=== PATIENT | female | born 1980 | race Hispanic/Latino ===

== ENCOUNTER 2021-05-07 00:10 | Inpatient (IN) | payer SELFPAY ==
--- OUTSIDE RECORDS SUMMARY | 2021-05-07 00:13 | XMS REPORT | Continuity of Care Document ---
:1980 Author Organization [facility] t Address [address] [place] [address] Care Team Providers Name Role Phone Pcp, Patient Does Not Have A Primary Care Physician [id number] Haseeb Driver NP Attending Clinician Haseeb DRIVER Attending Clinician Unavailable Problems This patient has no known problems. Allergies, Adverse Reactions, Alerts Allergy Allergy Status Severity Reaction(s) Onset Inactive Treating Comm ents Source Name Type Date Date Clinician NO KNOWN Drug Active Univers ALLERGIE Class ity [facility] Social History Social Habit Start Date Stop Date Quantity Comments Source Exposure to Not sure [facility] SARS-CoV-2 (event) Medica l Branch Sex Assigned At [birth year]01 [facility] 00:00:00 00:00:[address] [facility] Smoking Status Start Date Stop Date Source Unknown if ever smoked [facility] Medications This patient has no known medications. Vital Signs Vital Name Observation Time Observation Value Comments Source Systolic blood 2021-05-07 01:40:00 140 mm[Hg] Univer sity [facility] Diastolic blood 2021-05-07 01:40:00 109 mm[Hg[facility] 2021-05-07 01:40:00 115 /min [facility] Body temperature 2021-05-07 01:40:[address] [facility] Respiratory rate 2021-05-07 01:40:00 20 /min [facility] Body weight 2021-05-07 01:40:00 61.236 kg [facility] Oxygen saturation in 2021-05-07 01:40:00 100 /min [facility] blood by [facility] Pulse oximetry Branch Procedures This patient has no known procedures. Encounters Start End Encounter Admission Attending Care Care Encounter Source Date/Time Date/Time Type Type Clinicians Facility Department ID 2021-05-06 2021-05-06 Emergency [facility] [id number] Univers 20:44:00 21:51:00 Rody SANTA [id number] [facility] [id number] [facility] [id number] [facility] 084 Branch 2021-05-06 2021-05-06 Emergency X [facility] ERT [id number] Univers 20:44:00 21:51:00 RODY edwards [facility] 2021-05-06 2021-05-06 Emergency X [facility] ERT [id number] Univers 19:17:00 19:17:00 ity [facility] Results This patient has no known results.
[2021-05-07 00:54] LABS: Absolute Lymphocytes (CBC) 3.1 K/uL (0.7-4.9); Hematocrit 44.1 % (36.0-45.0); Lymphocytes % 34.3 % (15.3-44.8); MPV 8.4 fL (7.6-11.3); RBC Red Blood Cell Count 4.73 M/uL (3.86-4.86)
[2021-05-07 01:28] LABS: BUN Blood Urea Nitrogen 6 mg/dL (7-18); Bicarbonate 25 mmol/L (21-32); Glucose Level 92 mg/dL (74-106); Potassium 3.7 mmol/L (3.5-5.1); Sodium Level 139 mmol/L (136-145); Troponin High Sensitivity 7.1 pg/mL (<58.9)
[2021-05-07 01:34] LABS: Creatine Phosphokinase 1684 U/L (26-192)
[2021-05-07] MEDS ORDERED: NA CHLORIDE 0.9% 1,000 ML ONE ×2 (01:43→07:40)
[2021-05-07 03:11] LABS: Urine Blood Negative (Negative); Urine Glucose Negative (Negative); Urine Protein Negative (Negative)
[2021-05-07 03:24] LABS: Barbiturates NEGATIVE (NEGATIVE); Benzodiazepines NEGATIVE (NEGATIVE); Cocaine POSITIVE (NEGATIVE); METHAMPHETAM NEGATIVE (NEGATIVE); Methadone NEGATIVE (NEGATIVE); Opiates NEGATIVE (NEGATIVE); Phencyclidine NEGATIVE (NEGATIVE); THC Cannibis POSITIVE (NEGATIVE)
--- NOTE | 2021-05-07 03:24 | EDPHYS ---
Physician Documentation [facility] Name: Sherri Sampson Age: 40 yrs Sex: Female : 1980 Arrival Date: 05/07/2021 Time: 00:11 Bed 2 Private MD: ED Physician Johnny Sierra HPI: 05/07 01:25 This 40 yrs old Female presents to ER via Wheelchair with complaints of Breathing mh7 Difficulty, High Blood Pressure. 01:25 The patient has shortness of breath during heavy activity. [facility] 01:25 Onset: The symptoms/episode began/occurred last night. Duration: The symptoms are [facility] intermittent, with no pattern. The patient's shortness of breath is aggravated by exertion, is alleviated by rest. Associated signs and symptoms:. 01:25 Associated signs and symptoms: Pertinent positives: palpitations, shaking activity of [facility] body, Pertinent negatives: chest pain, non-productive cough, productive cough, diaphoresis, dizziness, fever, hemoptysis, loss of consciousness, nausea, numbness in extremities, visual changes, vomiting. 01:25 Severity of symptoms: At their worst the symptoms were moderate last night, in the [facility] emergency department the symptoms are unchanged. 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 - Social history:: Smoking status: Reported history of juuling and/or vaping. Patient uses street drugs, cocaine, marijuana. ROS: 01:25 Constitutional: Negative for fever, chills, and weight loss, Eyes: Negative for injury, mh7 pain, redness, and discharge, ENT: Negative for injury, pain, and discharge, Neck: Negative for injury, pain, and swelling, Abdomen/GI: Negative for abdominal pain, nausea, vomiting, diarrhea, and constipation, Back: Negative for injury and pain, : Negative for injury, bleeding, discharge, and swelling, MS/Extremity: Negative for injury and deformity, Skin: Negative for injury, rash, and discoloration, Psych: Negative for depression, anxiety, suicide ideation, homicidal ideation, and hallucinations, Allergy/Immunology: Negative for hives, rash, and allergies, Endocrine: Negative for neck swelling, polydipsia, polyuria, polyphagia, and marked weight changes, Hematologic/Lymphatic: Negative for swollen nodes, abnormal bleeding, and unusual bruising. Exam: 01:25 Head/Face: Normocephalic, atraumatic. Eyes: Pupils equal round and reactive to light, mh7 extra-ocular motions intact. Lids and lashes normal. Conjunctiva and sclera are non-icteric and not injected. Cornea within normal limits. Periorbital areas with no swelling, redness, or edema. Neck: Trachea midline, no thyromegaly or masses palpated, and no cervical lymphadenopathy. Supple, full range of motion without nuchal rigidity, or vertebral point tenderness. No Meningismus. Chest/axilla: Normal chest wall appearance and motion. Nontender with no deformity. No lesions are appreciated. Cardiovascular: Regular rate and rhythm with a normal S1 and S2. No gallops, murmurs, or rubs. Normal PMI, no JVD. No pulse deficits. Respiratory: Lungs have equal breath sounds bilaterally, clear to auscultation and percussion. No rales, rhonchi or wheezes noted. No increased work of breathing, no retractions or nasal flaring. Abdomen/GI: Soft, non-tender, with normal bowel sounds. No distension or tympany. No guarding or rebound. No evidence of tenderness throughout. Back: No spinal tenderness. No costovertebral tenderness. Full range of motion. Skin: Warm, dry with normal turgor. Normal color with no rashes, no lesions, and no evidence of cellulitis. MS/ Extremity: Pulses equal, no cyanosis. Neurovascular intact. Full, normal range of motion. 01:25 Psych: Awake, alert, with orientation to person, place and time. Behavior, mood, and affect are within normal limits. 01:25 Constitutional: The patient appears in no acute distress, alert, awake, anxious. 01:25 Neuro: Orientation: is normal, Mentation: is normal, Memory: is normal, Cranial nerves: grossly normal, Cerebellar function: is grossly normal, Motor: is normal, Sensation: is normal, Gait: not tested. seizure activity, is not displayed by the patient, Abnormal movements: there are no abnormal movements. 01:25 ECG was reviewed by the Attending Physician. [facility] Vital Signs: 00:28 BP 134 / 98; Pulse 95; Resp 16; Temp 99(O); Pulse Ox 100% on R/A; Weight 58.97 kg (R); lp1 Height 5 ft. 2 in. (157.48 cm); 01:15 BP 109 / 81; Pulse 84; Resp 18 S; Pulse Ox 97% on R/A; bb 01:58 BP 110 / 76; Pulse 74; Resp 16 S; Pulse Ox 97% on R/A; bb 03:30 BP 121 / 93; Pulse 81; Resp 18 S; Pulse Ox 100% on R/A; bb 05:12 BP 98 / 68; Pulse 85; Resp 18 S; Pulse Ox 100% on R/A; bb 00:28 Body Mass Index 23.78 (58.97 kg, 157.48 cm) lp1 MDM: 03:20 Differential diagnosis: Anemia Anxiety Reaction asthma, Bronchitis Myocardial mh7 Infarction pneumonia, Pneumothorax Psychogenic pulmonary edema, Pulmonary Embolism reactive airway disease. Data reviewed: vital signs, nurses notes, lab test result(s), CBC, electrolytes, urinalysis, EKG, radiologic studies, plain films. Data interpreted: Pulse oximetry: on room air is 97 %. Interpretation: normal. Counseling: I had a detailed discussion with the patient and/or guardian regarding: the historical points, exam findings, and any diagnostic results supporting the discharge/admit diagnosis, lab results, radiology results, the need for further work-up and treatment in the hospital. Response to treatment: the patient's symptoms have mildly improved after treatment. 03:23 Patient medically screened. [facility] 05/07 00:34 Order name: Basic Metabolic Panel; Complete Time: : 05/07 00:34 Order name: CBC with Diff; Complete Time: : 05/07 00:34 Order name: Troponin HS; Complete Time: : 05/07 00:50 Order name: Urine Drug Screen; Complete Time: 04:34 [facility] 05/07 00:50 Order name: ETOH Level; Complete Time: : [facility] 05/07 00:34 Order name: XRAY Chest (1 view) 05/07 00:34 Order name: EKG; Complete Time: 00:34 05/07 01:00 Order name: Creatine Phosphokinase; Complete Time: 01:35 EDMS 05/07 02:09 Order name: D-Dimer; Complete Time: 03:15 mh7 05/07 03:04 Order name: Urine --Ancillary (enter results); Complete Time: 03:15 mw2 05/07 03:05 Order name: COVID-19/FLU A+B (Document "Date of Onset" if Symptomatic); Complete Time: mw2 04:34 05/07 03:11 Order name: Urine Dipstick-Ancillary; Complete Time: 03:15 EDMS 05/07 00:34 Order name: Cardiac monitoring; Complete Time: 00:34 05/07 00:34 Order name: EKG - Nurse/Tech; Complete Time: 00:34 05/07 00:34 Order name: IV Saline Lock; Complete Time: 00:34 05/07 00:34 Order name: Labs collected and sent; Complete Time: 00:34 05/07 00:34 Order name: O2 Per Protocol; Complete Time: 00:34 05/07 00:34 Order name: O2 Sat Monitoring; Complete Time: 00:34 05/07 00:50 Order name: Urine Dipstick-Ancillary (obtain specimen); Complete Time: 03:06 7 05/07 00:50 Order name: Urine Test (obtain specimen); Complete Time: 03:06 7 EC:25 Rate is 84 beats/min. Rhythm is regular, Normal Sinus Rhythm with No ectopy. Right axis [facility] deviation noted. DC interval is normal. QRS interval is normal. QT interval is normal. No Q waves. T waves are Normal. No ST changes noted. Clinical impression: Normal ECG and No evidence of ischemia. Administered Medications: 01:43 Drug: NS 0.9% 1000 ml Route: IV; Rate: 1000 ml; Site: right antecubital; bb 02:45 Follow up: IV Status: Completed infusion; IV Intake: 950ml bb Disposition Summary: 05/07/21 03:23 Hospitalization Ordered Hospitalization Status: Inpatient Admission [facility] Provider: Albino Escobar [facility] Location: Telemetry/MedSu (Inpatient) mh7 Condition: Stable mh7 Problem: new mh7 Symptoms: have improved mh7 Bed/Room Type: Standard [facility] Room Assignment: 219(05/07/21 05:54) roderick Diagnosis - Dyspnea mh7 - Rhabdomyolysis 7 - Cocaine Abuse [facility] Forms: - Medication Reconciliation Form 7 - SBAR form [facility] Signatures: Dispatcher [employer] EDMS Rosemarie June RN RN mw Ballard, Brenda, RN RN bb Andria Wright RN RN lp1 Johnny Sierra MD MD [facility] Corrections: (The following items were deleted from the chart) 01:00 00:50 CREATINE PHOSPHOKINASE+C.LAB.BRZ ordered. EDLA EDMS 05:54 03:23 7 roderick
--- NOTE | 2021-05-07 03:24 | ER ---
Nurse's Notes [facility] Name: Sherri Sampson Age: 40 yrs Sex: Female : 1980 Arrival Date: 05/07/2021 Time: 00:11 Bed 2 Private MD: Diagnosis: Dyspnea;Rhabdomyolysis;Cocaine Abuse Presentation: 05/07 00:28 Chief complaint: Patient states: "I feel like my heart beats real slow and then real lp1 fast, and I'm not sure if my body is having seizures"; Patient reports feeling like she is short or breath; Used cocaine 2 days ago per patient. Coronavirus screen: At this time, the client does not indicate any symptoms associated with coronavirus-19. Ebola Screen: No symptoms or risks identified at this time. Initial Sepsis Screen: Does the patient meet any 2 criteria? No. Patient's initial sepsis screen is negative. Does the patient have a suspected source of infection? No. Patient's initial sepsis screen is negative. Risk Assessment: Do you want to hurt yourself or someone else? Patient reports no desire to harm self or others. Onset of symptoms was May 07, 2021. 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 - Social history:: Smoking status: Reported history of juuling and/or vaping. Patient uses street drugs, cocaine, marijuana. Screenin:31 Abuse screen: Denies threats or abuse. Nutritional screening: No deficits noted. bb Tuberculosis screening: No symptoms or risk factors identified. Fall Risk None identified. Assessment: 00:31 General: Appears in no apparent distress. Behavior is cooperative, anxious. Pain: bb Denies pain. Neuro: Level of Consciousness is awake, alert, obeys commands, Oriented to person, place, time, situation. Cardiovascular: Heart tones S1 S2 present Capillary refill < 3 seconds Patient's skin is warm and dry. Edema is absent. Rhythm is sinus rhythm. Respiratory: Airway is patent Respiratory effort is even, unlabored, Respiratory pattern is regular, Breath sounds are clear bilaterally. GI: Abdomen is flat, Bowel sounds present X 4 quads. Abd is soft and non tender X 4 quads. Derm: Skin is pink, warm \\T\\ dry. Musculoskeletal: Circulation, motion, and sensation intact. 01:15 Reassessment: Patient is alert, oriented x 3, equal unlabored respirations, skin bb warm/dry/pink. pt awaiting diagnostic results, family at bedside. 01:58 Reassessment: pt sleeping, eyes closed, resp unlabored, arouses easily, family at bb bedside IV site intact, patent with no erythema or edema noted. 02:14 Reassessment: lab notified of add-on D-dimer. bb 03:29 Reassessment: pt is sleeping, eyes closed, resp unlabored. bb 05:11 Reassessment: pt is sleeping, eyes closed, resp unlabored, family at bedside awaiting bb room assignment. 06:30 Reassessment: pt is sleeping, eyes closed, resp unlabored, awaiting shift change for bb room assignment. Vital Signs: 00:28 BP 134 / 98; Pulse 95; Resp 16; Temp 99(O); Pulse Ox 100% on R/A; Weight 58.97 kg (R); lp1 Height 5 ft. 2 in. (157.48 cm); 01:15 BP 109 / 81; Pulse 84; Resp 18 S; Pulse Ox 97% on R/A; bb 01:58 BP 110 / 76; Pulse 74; Resp 16 S; Pulse Ox 97% on R/A; bb 03:30 BP 121 / 93; Pulse 81; Resp 18 S; Pulse Ox 100% on R/A; bb 05:12 BP 98 / 68; Pulse 85; Resp 18 S; Pulse Ox 100% on R/A; bb 00:28 Body Mass Index 23.78 (58.97 kg, 157.48 cm) lp1 Vitals: 00:31 Cardiac Rhythm Assessment Sinus rhythm. bb ED Course: 00:11 Patient arrived in ED. ja2 00:30 Karrie Hinds RN is Primary Nurse. bb 00:30 Initial lab(s) drawn, by me, sent to lab. EKG done, by ED staff, reviewed by Johnny Sierra MD. Inserted saline lock: 20 gauge in right antecubital area, using aseptic technique. Blood collected. 00:31 Johnny Sierra MD is Attending Physician. 7 00:31 Triage completed. lp1 00:31 Arm band placed on. lp1 00:31 Patient has correct armband on for positive identification. Placed in gown. Bed in low bb position. Call light in reach. Side rails up X 1. Adult w/ patient. 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 Pulse ox on. NIBP on. 00:52 ETOH Level Sent. bb 01:47 X-ray completed. Portable x-ray completed in exam room. Patient tolerated procedure [facility]. 01:52 XRAY Chest (1 view) In Process Unspecified. EDMS 03:06 Urine Drug Screen Sent. [facility] 03:21 Albino Escobar is Hospitalizing Provider. [facility] 03:31 No provider procedures requiring assistance completed. Patient admitted, IV remains in bb place. 07:04 Report given to Cleve SANDERS. bb Administered Medications: 01:43 Drug: NS 0.9% 1000 ml Route: IV; Rate: 1000 ml; Site: right antecubital; bb 02:45 Follow up: IV Status: Completed infusion; IV Intake: 950ml bb Intake: 02:45 IV: 950ml; Total: 950ml. Outcome: 03:23 Decision to Hospitalize by Provider. [facility] 03:31 Instructed on the need for admit. 03:31 Condition: stable bb 07:33 Admitted to Tele accompanied by [facility], via stretcher, room 219. [facility] 07:33 Condition: stable 07:33 Instructed on the need for admit, gave report to Erica SANDERS 07:48 Patient left the ED. [facility] Signatures: Dispatcher [employer] EDMS Rosemarie Cunningham 1 Karrie Hinds, RN RN bb Andria Wright, RN RN 1 Johnny Sierra MD MD 7 Marisol Arce Jennifer, RN RN 6 Claudine Sol RN RN 5 Corrections: (The following items were deleted from the chart) 01:00 00:52 CREATINE PHOSPHOKINASE+C.LAB.BRZ drawn and sent. bb EDMS
[2021-05-07 03:58] LABS: SARS-COV-2 RT PCR NEGATIVE (NEGATIVE)
--- NOTE | 2021-05-07 04:45 | P.HP ---
Certification for Inpatient Patient admitted to: Inpatient With expected LOS: <2 Midnights Patient will require the following post-hospital care: None Practitioner: I am a practitioner with admitting privileges, knowledge of patient current condition, hospital course, and medical plan of care. Services: Services provided to patient in accordance with Admission requirements found in Title 42 Section 412.3 of the Code of Federal Regulations Patient History Date of Service: 05/07/21 Reason for admission: Rhabdomyolysis History of Present Illness: Patient is a 40-year-old female with psychiatric history who presented to the ED complaining of alternating bradycardia and tachycardia and shortness of breath on exertion. Patient reports that she used cocaine 2 days ago. Labs unremarkable except for CKMB of 1684. Toxicology positive for cocaine and THC. She received 1 L fluid in the ED. upon my assessment, patient is sleeping and difficult to obtain a history from. Vital signs remained stable. Will admit patient for further treatment of rhabdomyolysis. Allergies No Known Allergies Allergy (Unverified 05/07/21 04:36) Home medications list reviewed: Yes - Past Medical/Surgical History Diabetic: No -: Bipolar Disorder -: Depression -: Anxiety -: PTSD -: Ankle surgery Psychosocial/ Personal History: Patient lives at home. - Family History Family History: Reviewed- Non-Contributory - Social History Smoking Status: Current some day smoker (Patient vapes.) Alcohol use: Yes CD- Drugs: Yes Caffeine use: Yes Place of Residence: Home Review of Systems Respiratory: SOB with Excertion Cardiovascular: As per HPI Physical Examination - Physical Exam General: Alert, In no apparent distress HEENT: Atraumatic, PERRLA, Mucous membr. moist/pink, EOMI, Sclerae nonicteric Neck: Supple, 2+ carotid pulse no bruit, No LAD, Without JVD or thyroid abnormality Respiratory: Clear to auscultation bilaterally, Normal air movement Cardiovascular: Regular rate/rhythm, Normal S1 S2 Gastrointestinal: Normal bowel sounds, No tenderness Musculoskeletal: No tenderness Integumentary: No rashes Neurological: Normal speech, Normal strength at 5/5 x4 extr, Normal tone, Normal affect - Studies Laboratory Data (last 24 hrs) 05/07/21 00:30: WBC 9.1, Hgb 15.4 H, Hct 44.1, Plt Count 306 05/07/21 00:30: Sodium 139, Potassium 3.7, BUN 6 L, Creatinine 0.65, Glucose 92 Assessment and Plan - Problems (Diagnosis) (1) Rhabdomyolysis Current Visit: Yes Status: Acute Qualifiers: Rhabdomyolysis type: non-traumatic Qualified Code(s): M62.82 - Rhabdomyolysis (2) History of cocaine use Current Visit: Yes Status: Acute (3) Bipolar disorder Current Visit: Yes Status: Chronic Qualifiers: Active/Remission status: remission status unspecified Qualified Code(s): F31.9 - Bipolar disorder, unspecified - Plan -CKMB 1684 on admission. continue IV fluids at 125 cc an hour and trend CK-MB. we will monitor renal function -Patient has psychiatric history and is otherwise healthy. continue home medications. -Vital signs stable DVT PPx: Lovenox Code: Full Discharge Plan: Home Plan to discharge in: 48 Hours - Advance Directives Does patient have a Living Will: No Does patient have a Durable POA for Healthcare: No - Code Status/Comfort Care Code Status Assessed: Yes (Full) Critical Care: No Time Spent Managing Pts Care (In Minutes): 70
[2021-05-07 05:05] VITALS: BMI 23.8
[2021-05-07] MEDS ORDERED: ZOLPIDEM TARTRATE 5 MG TABLET PO PRN (05:06)
[2021-05-07] MEDS ORDERED: ACETAMINOPHEN 500 MG TAB PO PRN (05:06)
[2021-05-07] MEDS ORDERED: NA CHLORIDE 0.9% 1,000 ML IV SCH (05:06)
[2021-05-07] MEDS ORDERED: ONDANSETRON 4 MG/2 ML VIAL IV PRN (05:06)
[2021-05-07 08:12] VITALS: O2SAT 100
[2021-05-07 08:17] VITALS: BP 117/79; TEMP 98.1
[2021-05-07] MEDS ORDERED: ENOXAPARIN 40 MG/0.4 ML SQ SCH (09:00)
--- NOTE | 2021-05-07 09:26 | EKG ---
Test Date: 2021-05-07 Test Time: 00:33:08 Trial Lawyer: SINCERE MEASUREMENT RESULTS: Intervals: Rate: 84 OR: 126 QRSD: 80 QT: 368 QTc: 434 [place]: P: -9 OR: 126 QRS: 93 T: 52 INTERPRETIVE STATEMENTS: Normal sinus rhythm Rightward axis Borderline ECG No previous ECG available for comparison Electronically Signed On 05-07-21 09:25:39 CDT by Aston Ovalle
--- NOTE | 2021-05-07 12:06 | RAD REPORT ---
EXAM DESCRIPTION: RAD - Chest Single View - 05/07/2021 1:50 am CLINICAL HISTORY: 40 years Female, SOB COMPARISON: None. FINDINGS: Cardiomediastinal silhouette is normal. No focal consolidation, pneumothorax or pleural effusion. Osseous structures are unremarkable. IMPRESSION: No acute findings. Electronically signed by: Mirza Auguste MD 05/07/2021 2:02 AM CDT Due to temporary technical issues with the PACS/Fluency reporting system, reports are being signed by the in house radiologist without review as a courtesy to ensure prompt reporting. The interpreting r adiologist is fully responsible for the content of the report.
--- NOTE | 2021-05-07 12:29 | P.DS ---
Admission Date: 05/07/21 Discharge Date: 05/07/21 Disposition: ROUTINE DISCHARGE Discharge Condition: FAIR Reason for Admission: Rhabdomyolysis - Problems (1) Elevated creatine kinase Status: Acute (2) History of cocaine use Status: Acute (3) Bipolar disorder Status: Chronic Qualifiers: Active/Remission status: remission status unspecified Qualified Code(s): F31.9 - Bipolar disorder, unspecified Brief History of Present Illness: Patient is a 40-year-old female with psychiatric history who presented to the ED complaining of alternating bradycardia and tachycardia and shortness of breath on exertion. Patient reports that she used cocaine 2 days ago. Labs unremarkable except for CKMB of 1684. Toxicology positive for cocaine and THC. She received 1 L fluid in the ED. Vital signs stable. Patient placed on observation for monitoring. Hospital Course: Patient placed under observation and started on supportive measures including IV hydration. Her heart rate remained stable. Patient is ambulatory with stable vitals. She is deemed stable for discharge. Vital Signs/Physical Exam: Temp Pulse Resp BP Pulse Ox 98.1 F 103 H 18 117/79 100 05/07/21 08:00 05/07/21 08:00 05/07/21 08:00 05/07/21 08:00 05/07/21 08:00 General: Alert, In no apparent distress, Oriented x3 HEENT: Mucous membr. moist/pink Neck: JVD not distended Respiratory: Clear to auscultation bilaterally, Normal air movement Cardiovascular: No edema, Regular rate/rhythm, Normal S1 S2 Gastrointestinal: Soft and benign, Non-distended, No tenderness Neurological: Normal speech, Normal strength at 5/5 x4 extr Laboratory Data at Discharge: WBC 9.1 K/uL (4.3-10.9) 05/07/21 00:30 Hgb 15.4 g/dL (12.0-15.0) H 05/07/21 00:30 Hct 44.1 % (36.0-45.0) 05/07/21 00:30 Plt Count 306 K/uL (152-406) 05/07/21 00:30 Sodium 139 mmol/L (136-145) 05/07/21 00:30 Potassium 3.7 mmol/L (3.5-5.1) 05/07/21 00:30 BUN 6 mg/dL (7-18) L 05/07/21 00:30 Creatinine 0.65 mg/dL (0.55-1.3) 05/07/21 00:30 Glucose 92 mg/dL (74-106) 05/07/21 00:30 Diet: Regular Activity: Ad dino Followup: NONE,NONE [Primary Care Provider] -
== END 2021-05-07 11:50 | disposition home or self-care (01) | DRG 558 ==
LOC: ER 00:10 → ERHOLD 04:33 → 2ND 06:01
PROVIDERS: ADMIT Internal Medicine; ATTEND Internal Medicine
DX: M62.82 Rhabdomyolysis (principal); F31.9 Bipolar disorder, unspecified; F41.9 Anxiety disorder, unspecified; R79.89 Other specified abnormal findings of blood chemistry; F14.90 Cocaine use, unspecified, uncomplicated; F12.90 Cannabis use, unspecified, uncomplicated; F17.290 Nicotine dependence, other tobacco product, uncomplicated; Z20.822 Contact with and (suspected) exposure to COVID-19
CPT/HCPCS: 0240U; 36415; 71045; 80048; 80307; 80320; 81003; 81025; 82550; 82553; 84484; 85025; 85379; 93005; 96360; 99285; J1650; J7030